=== PATIENT | male | born 2000 | race African-American/Black ===

== ENCOUNTER 2025-05-14 08:11 | Emergency (ER) | payer SELFPAY ==
--- NOTE | 2025-05-14 08:36 | EDPHYS ---
Physician Documentation [facility] Name: Gilbert Santana Age: 24 yrs Sex: Male : 2000 Arrival Date: 05/14/2025 Time: 08:11 Bed IW2 Private MD: ED Physician Tom Alcantara HPI: 05/14 08:34 This 24 yrs old Black Male presents to ER via Ambulatory with complaints of poison ilya, dr5 hernia. 08:34 Onset: The symptoms/episode began/occurred. dr5 08:34 Onset: The symptoms/episode began/occurred 2 day(s) ago. Patient is a 24-year-old male dr5 with no past medical history coming in with contact of otitis to left arm that moved to his right arm for the past 2 days. 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 Patient also reports a hernia to left inguinal area and going on for the past couple months. Patient is wondering the protocol for getting that repaired.. Historical: - Allergies: 08:32 No Known Allergies; jl7 - Home Meds: 08:32 None [Active]; jl7 - PMHx: 08:32 None; jl7 - Immunization history:: Adult Immunizations unknown. - Infectious Disease History:: Denies. - Social history:: Smoking status: Patient denies any tobacco usage or history of. ROS: 08:34 Constitutional: as per hpi dr5 Exam: 08:34 Constitutional: This is a well developed, well nourished patient who is awake, alert, dr5 and in no acute distress. Head/Face: Normocephalic, atraumatic. Eyes: Pupils equal round and reactive to light, extra-ocular motions intact. Lids and lashes normal. Conjunctiva and sclera are non-icteric and not injected. Cornea within normal limits. Periorbital areas with no swelling, redness, or edema. Neck: Trachea midline, no thyromegaly or masses palpated, and no cervical lymphadenopathy. Supple, full range of motion without nuchal rigidity, or vertebral point tenderness. No Meningismus. Chest/axilla: Normal chest wall appearance and motion. Nontender with no deformity. No lesions are appreciated. Cardiovascular: Regular rate and rhythm with a normal S1 and S2. Normal PMI, no JVD. No pulse deficits. Respiratory: Lungs have equal breath sounds bilaterally, clear to auscultation. No rales, rhonchi or wheezes noted. No increased work of breathing, no retractions or nasal flaring. Abdomen/GI: Soft, non-tender, non-distended Back: No spinal tenderness. No costovertebral tenderness. Full range of motion. Skin: Warm, dry with normal turgor. Normal color with no rashes, no lesions, and no evidence of cellulitis. Rash noted to bilateral arms consistent with contact dermatitis. MS/ Extremity: Pulses equal, no cyanosis. Neurovascular intact. Full, normal range of motion. Neuro: Awake and alert, GCS 15, oriented to person, place, time, and situation. Cranial nerves II-XII grossly intact. Motor strength 5/5 in all extremities. Sensory grossly intact. Cerebellar exam normal. Normal gait. 08:34 Skin: contact dermatitis, Vital Signs: 08:28 BP 130 / 85; Pulse 53; Resp 15; Temp 98.2; Pulse Ox 100% ; Pain 0/10; jl7 08:28 Pain Scale: Adult jl7 MDM: 08:24 Medical Screening Exam initiated dr5 08:41 Differential diagnosis: viral Infection, Contact Dermatitis, Inguinal hernia. Data dr5 reviewed: vital signs, nurses notes. Consideration of Admission/Observation Escalation of care including admission/observation considered. Escalation considered patient found to have vesicles or rash on eyes. I considered the following discharge prescriptions or medication management in the emergency department I discussed and recommended Over The Counter medications, Medications were administered in the Emergency Department. See MAR. Care significantly affected by the following Social Determinants of Health: Poor access to healthcare and/or lack of insurance, Poor access to transportation, Problems related to employment. Counseling: I had a detailed discussion with the patient and/or guardian regarding the historical points, exam findings, and any diagnostic results supporting the discharge/admit diagnosis, the presence of at least one elevated blood pressure reading (>120/80) during this emergency department visit, the need for outpatient follow up, for definitive care, a family practitioner, a general surgeon, to return to the emergency department if symptoms worsen or persist or if there are any questions or concerns that arise at home. Medication response: Dexamethasone. Special discussion: I have referred the patient to see his PCP for further evaluation of high blood pressure. I discussed with the patient/guardian in detail that at this point there is no indication for admission to the hospital. It is understood, however, that if the symptoms persist or worsen the patient needs to return immediately for re-evaluation. Based on the history and exam findings, there is no indication for further emergent testing or inpatient evaluation. I discussed with the patient/guardian the need to see the general surgeon for further evaluation of the symptoms. ED course: Patient has reducible inguinal hernia. Recommended patient follow-up with my CHN since he does not have insurance. Recommended to hold off on intercourse until he has hernia looked at. Patient denies any dysuria or abdominal pain. Explained that surgery has to repair his hernia. Dexamethasone IM given in ER and given steroid Dosepak for chronic dermatitis. All questions answered. Strict ER precautions given. Administered Medications: 08:39 Drug: Dexamethasone IM 10 mg IM once Route: IM; Site: right deltoid; 7 08:39 Follow up: Response: Medication administered at discharge. jl7 Disposition Summary: 05/14/25 08:36 Discharge Ordered Notes: Location: Home dr5 Condition: Stable dr5 Diagnosis - Allergic contact dermatitis due to plants, except food dr5 Followup: dr5 - With: Emergency Department - When: As needed - Reason: Worsening of condition Followup: dr5 - With: Kiel Lilly MD - When: 1 week - Reason: Recheck today's complaints, Continuance of care, Re-evaluation by your physician Followup: dr5 - With: Ghulam Saab MD - When: 1 week - Reason: Recheck today's complaints, Continuance of care, Re-evaluation by your physician Discharge Instructions: - Discharge Summary Sheet dr5 - Contact Dermatitis dr5 Forms: - Work release form jl7 - Medication Reconciliation Form dr5 - Patient Portal Instructions dr5 - Leadership Thank You Letter dr5 Prescriptions: - Triamcinolone Acetonide 0.5 % Topical cream - apply 1 application TOPICAL route 2 times per day As needed; 1 application; dr5 Refills: 0, Product Selection Permitted - Medrol (Boo) 4 mg Oral Tablets, Dose Pack - take 1 tablet ORAL route as directed - follow package instructions; 1 packet; dr5 Refills: 0, Product Selection Permitted Addendum: 05/18/2025 13:46 Co-signature as Attending Physician, oTm Alcantara MD I agree with the assessment and c melgar plan of care. Signatures: Tom Alcantara MD MD cha Leal, Jahala, RN RN jl7 Caleb Umanzor, WOMEN'S LACROSSE COACH-C WOMEN'S LACROSSE COACH-Cdr5
--- NOTE | 2025-05-14 08:36 | ER ---
Nurse's Notes [facility] Name: Gilbert Santana Age: 24 yrs Sex: Male : 2000 Arrival Date: 05/14/2025 Time: 08:11 Bed IW2 Private MD: Diagnosis: Allergic contact dermatitis due to plants, except food Presentation: 05/14 08:28 Chief complaint: Patient states: Poison ilya x 1 week, worsening over the last 2 days, jl7 redness to face, bilateral arms, reports redness, itchy and swelling to groin. Also reporting wanting to find out if a bulge to left groin is a hernia or not, denies pain. Coronavirus screen: At this time, the client does not indicate any symptoms associated with coronavirus-19. Ebola Screen: No symptoms or risks identified at this time. Initial Sepsis Screen: Does the patient meet any 2 criteria? No. Patient's initial sepsis screen is negative. Does the patient have a suspected source of infection? No. Patient's initial sepsis screen is negative. Risk Assessment: Do you want to hurt yourself or someone else? Patient reports no desire to harm self or others. Onset of symptoms was May 07, 2025. 08:28 Method Of Arrival: Ambulatory jl7 08:28 Acuity: KELLI 4 jl7 Triage Assessment: 08:32 General: Appears in no apparent distress. uncomfortable, Behavior is calm, cooperative, jl7 appropriate for age. Pain: Denies pain. Derm: Rash noted that is itchy, red. Historical: - Allergies: 08:32 No Known Allergies; jl7 - Home Meds: 08:32 None [Active]; jl7 - PMHx: 08:32 None; jl7 - Immunization history:: Adult Immunizations unknown. - Infectious Disease History:: Denies. - Social history:: Smoking status: Patient denies any tobacco usage or history of. Screenin:40 [facility] ED Fall Risk Assessment (Adult) History of falling in the last 3 months, jl7 including since admission No falls in past 3 months (0 pts) Confusion or Disorientation No (0 pts) Intoxicated or Sedated No (0 pts) Impaired Gait No (0 pts) Mobility Assist Device Used No (0 pt) Altered Elimination No (0 pt) Score/Fall Risk Level 0 - 2 = Low Risk Oriented to surroundings, Maintained a safe environment. 08:40 Abuse screen: Denies threats or abuse. Denies injuries from another. Nutritional jl7 screening: No deficits noted. Tuberculosis screening: No symptoms or risk factors identified. Vital Signs: 08:28 BP 130 / 85; Pulse 53; Resp 15; Temp 98.2; Pulse Ox 100% ; Pain 0/10; jl7 08:28 Pain Scale: Adult jl7 ED Course: 08:17 Patient arrived in ED. al6 08:17 [facility]aleb [facility]man[facility]C [facility] jl7 08:17 Tom Alcantara MD is Attending Physician. jl7 08:32 Triage completed. jl7 08:32 Arm band placed on right wrist. jl7 08:36 Kiel Lilly MD is Referral Physician. dr5 08:36 Ghulam Saab MD is Referral Physician. dr5 08:40 Patient has correct armband on for positive identification. Provided Education on: jl7 discharge. 08:40 No provider procedures requiring assistance completed. Patient did not have IV access jl7 during this emergency room visit. 08:42 Dasha Ma, RN is Primary Nurse. jl7 Administered Medications: 08:39 Drug: Dexamethasone IM 10 mg IM once Route: IM; Site: right deltoid; jl7 08:39 Follow up: Response: Medication administered at discharge. jl7 Medication: 08:39 VIS not applicable for this client. jl7 Outcome: 08:36 Discharge ordered by . dr5 08:42 Discharged to home ambulatory, jl7 08:42 Condition: stable 08:42 Discharge instructions given to patient, Instructed on discharge instructions, follow up and referral plans. medication usage, Demonstrated understanding of instructions, follow-up care, medications, Prescriptions given X 2, 08:42 Patient left the ED. jl7 Signatures: Dasha Ma RN RN jl7 Caleb Umanzor FNP-C P[employer] M[employer]INE CRANE OPERATOR-Cdr5 Kiah Rowan al6
[2025-05-14 10:36] VITALS: BP 130/85; TEMP 98.2; O2SAT 100
== END 2025-05-14 08:42 | disposition home or self-care (01) ==
LOC: ER 08:11
DX: L23.7 Allergic contact dermatitis due to plants, except food (principal)
CPT/HCPCS: 96372; 99284; J1100